=== PATIENT | female | born 1980 | race Caucasian/White ===

== ENCOUNTER 2016-08-10 11:28 | Emergency (ER) | payer SELFPAY ==
[~2016-08-10] VITALS: Ht 162.6 cm; Wt 80.3 kg
[2016-08-10 11:32] VITALS: BP 133/91; PULSE 85; RESP 16; TEMP 98.3; O2SAT 97
[2016-08-10] MEDS ORDERED: CLINDAMYCIN PHOS 900 MG/6 ML VIAL IM ONE (12:15)
[2016-08-10] MEDS ORDERED: CLIN1CAP5 PO (12:35)
[2016-08-10] MEDS ORDERED: TRAM50TA PO (12:35)
[2016-08-10] MEDS ORDERED: FLOR250C PO (12:35)
[2016-08-10] MEDS ORDERED: IBUP800T23 PO (12:35)
--- NOTE | 2016-08-10 12:36 | PD ---
HPI Chief Complaint: Oral / Dental Pain or Problem Time Seen by Provider: 11:50 Travel History International Travel<30 days: No Contact w/Intl Traveler<30days: No Traveled to known affect area: No History of Present Illness HPI Patient's 36-year-old female presenting to emergency for evaluation of dental pain. Patient states her right upper tooth is broken and has been causing pain since last night getting progressively worse since that time. She states that her cheek feels swollen and she is experiencing a dull headache. Patient states the tooth is broken for some time. She denies any fevers, chills, nausea , vomiting, difficulty breathing. PFSH Past Medical History Asthma: Yes Diminished Hearing: No Tetanus Vaccination: < 5 Years Influenza Vaccination: Yes ?: Not Social History Alcohol Use: No Tobacco Use: Yes (1 PPD) Substance Use: No Allergies-Medications (Allergen,Severity, Reaction): Coded Allergies: No Known Allergies (Unverified , 08/10/16) Review of Systems Except as stated in HPI: all other systems reviewed are Neg HENT: Positive: Headaches, Dental Difficulties Physical Exam Narrative GENERAL: Well-nourished, well-developed patient. SKIN: Focused skin assessment warm/dry. HEAD: Normocephalic. MOUTH: Mucous membranes moist, no lesions, tongue and gums appear normal. Right upper molar is chipped and broken, there is an area of fluctuance adjacent to that in the roof of her mouth, no significant erythema, no exudates noted. Mildly tender to palpation. EYES: No scleral icterus. No injection or drainage. NECK: Supple, trachea midline. No JVD or lymphadenopathy. CARDIOVASCULAR: Regular rate and rhythm without murmurs, gallops, or rubs. RESPIRATORY: Breath sounds equal bilaterally. No accessory muscle use. GASTROINTESTINAL: Abdomen soft, non-tender, nondistended. MUSCULOSKELETAL: No cyanosis, or edema. BACK: Nontender without obvious deformity. No CVA tenderness. Data Data Last Documented VS Vital Signs Date Time Temp Pulse Resp B/P Pulse Ox O2 Delivery O2 Flow Rate FiO2 08/10/16 11:32 98.3 85 16 133/91 97 Orders Clindamycin Inj (Cleocin Inj) (08/10/16 12:15) [facility] Medical Decision Making Medical Screen Exam Complete: Yes Emergency Medical Condition: Yes Interpretation(s) Vital Signs Date Time Temp Pulse Resp B/P Pulse Ox O2 Delivery O2 Flow Rate FiO2 08/10/16 11:32 98.3 85 16 133/91 97 Differential Diagnosis Abscess versus caries versus cellulitis versus other Narrative Course Patient is a 36-year-old female presenting to emergency for evaluation of one day of dental pain. Discussed with my attending physician also evaluated patient. Paged on-call maxillofacial surgeon Dr. Steele who recommended patient be placed on antibiotics and follow up with a dentist as outpatient. Patient will be given clindamycin IM in the emergency department. She'll be provided with a prescription to complete full course at home. She is advised to follow-up with a dentist to have tooth extracted or to have a root canal performed. She was encouraged return to emergency department for any new or worsening symptoms. She verbalized understanding of instructions. Patient is stable for discharge. Diagnosis Primary Impression: Dental abscess Referrals: Dentist 1 week Patient Instructions: Dental Abscess (ED), General Instructions Additional Instructions: Follow-up with a dentist for further evaluation and treatment Complete full course of antibiotics as prescribed Do not drive or operate machinery while taking narcotic pain medication Return to emergency department for any new or worsening symptoms Med/Other Pt SpecificInfo: Prescription(s) given Scripts Tramadol 50 Mg Tab50 Mg PO Q6H PRN (PAIN) #10 TAB Ref 0 Prov:Lali Conn MD 08/10/16 Ibuprofen 800 Mg [id number] Mg PO Q6HR PRN (PAIN) #40 TAB Ref 0 Prov:Leticia Carias 08/10/16 Saccharomyces Boulardii (Florastor)250 Mg [id number] Mg PO BID 10 Days Ref 0 Prov:Leticia Carias 08/10/16 Clindamycin 150 Mg [id number] Mg PO Q8HR 10 Days Ref 0 Prov:Leticia Carias 08/10/16 Disposition: 01 DISCHARGE HOME Condition: Stable Leticia Carias Aug 10, 2016 12:36
== END 2016-08-10 13:18 | disposition home or self-care (01) ==
LOC: PHEFT 11:28
DX: K04.7 Periapical abscess without sinus (principal); J45.909 Unspecified asthma, uncomplicated; F17.210 Nicotine dependence, cigarettes, uncomplicated; R51 Headache
CPT/HCPCS: 96372

== ENCOUNTER 2016-11-01 09:54 | Emergency (ER) | payer SELFPAY ==
[~2016-11-01] VITALS: Ht 162.6 cm; Wt 83.6 kg
[~2016-11-01 09:54] MED LIST: CLIN1CAP5 PO; FLOR250C PO; IBUP800T23 PO; TRAM50TA PO
[2016-11-01 09:58] VITALS: BP 122/75; PULSE 85; RESP 16; TEMP 98.4; O2SAT 98
[2016-11-01] MEDS ORDERED: ORPHENADRINE INJ 60 MG/2 ML AMP IM ONE (10:15)
[2016-11-01] MEDS ORDERED: KETOROLAC TROMETHAMINE 60 MG/2 ML (IM) VIAL IM ONE (10:15)
[2016-11-01] MEDS ORDERED: IBUP-232 PO (10:17)
[2016-11-01] MEDS ORDERED: NORC5TAB PO (10:17)
[2016-11-01] MEDS ORDERED: ORPH100T99 PO (10:17)
--- NOTE | 2016-11-01 10:17 | PD ---
HPI Chief Complaint: Musculoskeletal Complaint Time Seen by Provider: 10:03 Travel History International Travel<30 days: No Contact w/Intl Traveler<30days: No Traveled to known affect area: No History of Present Illness HPI The patient is a 36-year-old female who presents emergency department for back spasms. The patient states she was driving her car yesterday when she developed back spasms which are located in the midthoracic region, radiates to the sides bilaterally, worse with certain positions such as sitting upright and certain movements such as rotating to the left or right, as well as bending over. The patient states her pain is improved when she lies on her side. She denies any radiation of the pain down the lower extremities and denies any weakness or numbness to lower extremities. She does have a previous history of herniated disc at L4-L5 and L5-S1. The patient denies any trauma to the thoracic region, however, does note the pain is also worse with coughing, occasionally feels like she has difficulty taking a deep breath secondary to the back spasms. She does have a history of a chronic dry nonproductive cough with a history of tobacco use. She denies any fever, chills, or sweats. Symptoms are mild to moderate, worse with certain movements, and alleviated with laying on her left side. PFSH Past Medical History Asthma: Yes Diminished Hearing: No Kidney Stones: Yes Medical other: Yes (HERNIATED DISCS, OSTEOMYELITIS) ?: Not LMP: 10/18/16 Past Surgical History Section: Yes Social History Alcohol Use: No Tobacco Use: Yes (1 PPD) Substance Use: No Allergies-Medications (Allergen,Severity, Reaction): Coded Allergies: No Known Allergies (Unverified , 11/01/16) Reported Meds & Prescriptions Reported Meds & Active Scripts Active No Active Prescriptions or Reported Medications Review of Systems Except as stated in HPI: all other systems reviewed are Neg General / Constitutional: No: Fever Cardiovascular: No: Chest Pain or Discomfort Respiratory: No: Shortness of Breath Gastrointestinal: No: Nausea, Vomiting Genitourinary: No: Dysuria, Incontinence Musculoskeletal: Positive: Pain Neurologic: No: Paresthesia, Sensory Disturbance Physical Exam Narrative GENERAL: Awake, alert, pleasant 36-year-old female who appears her stated age and is in no acute respiratory distress. SKIN: Focused skin assessment warm/dry. HEAD: Atraumatic. Normocephalic. EYES: Pupils equal and round. No scleral icterus. No injection or drainage. NECK: Trachea midline. No JVD. CARDIOVASCULAR: Regular rate and rhythm. No murmur appreciated. RESPIRATORY: No accessory muscle use. Clear to auscultation. Breath sounds equal bilaterally. Back: No tenderness of the mid thoracic or lumbar vertebrae. Mild tenderness of the paravertebral muscles, pain is elicited with rotation of thorax and with flexion of the thorax. No erythema or rash noted. MUSCULOSKELETAL: No obvious deformities. No clubbing. No cyanosis. No edema. NEUROLOGICAL: Awake and alert. No obvious cranial nerve deficits. Motor grossly within normal limits. Normal speech. PSYCHIATRIC: Appropriate mood and affect; insight and judgment normal. Data Data Last Documented VS Vital Signs Date Time Temp Pulse Resp B/P Pulse Ox O2 Delivery O2 Flow Rate FiO2 11/01/16 09:58 98.4 85 16 122/75 98 Orders Ketorolac Inj (Toradol Inj) (11/01/16 10:15) Orphenadrine Inj (Norflex Inj) (11/01/16 10:15) MDM Medical Decision Making Medical Screen Exam Complete: Yes Emergency Medical Condition: Yes Medical Record Reviewed: Yes Differential Diagnosis Differential diagnosis includes back spasm, arthralgia, shingles, radiculopathy , herniated disc, neuralgia. 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 Vitals are unremarkable and the patient is afebrile. The patient was administered Toradol and Norflex IM, will be discharged home on ibuprofen, Norflex, and [place] as needed for pain. She is advised to follow-up with her primary physician and return if symptoms worsen or progress. Diagnosis Primary Impression: Back spasm Patient Instructions: General Instructions Additional Instructions: Medications as directed. Follow-up with your primary physician. Return if symptoms worsen or progress. Med/Other Pt SpecificInfo: Prescription(s) given Scripts Orphenadrine ER 12 HR (Orphenadrine CR)100 Mg [id number] Mg PO Q12HR #20 TAB Ref 0 Prov:Valerio Taylor MD 11/01/16 Hydrocodone-Acetaminophen ([place])5-325 mg Tab1 Tab PO Q6H PRN (PAIN) #12 TAB Ref 0 Prov:Valerio Taylor MD 11/01/16 Ibuprofen 600 Mg [id number] Mg PO Q6H PRN (Pain/Inflammation) #20 TAB Ref 0 Prov:Valerio Taylor MD 11/01/16 Disposition: 01 DISCHARGE HOME Condition: Stable Valerio Taylor MD Nov 01, 2016 10:17
== END 2016-11-01 10:23 | disposition home or self-care (01) ==
LOC: PHEFT 09:54
DX: M62.830 Muscle spasm of back (principal); R05 Cough; F17.200 Nicotine dependence, unspecified, uncomplicated; Z87.09 Personal history of other diseases of the respiratory system; Z87.442 Personal history of urinary calculi; Z87.39 Personal history of other diseases of the musculoskeletal system and connective tissue
CPT/HCPCS: 96372; 99284; J1885; J2360

== ENCOUNTER 2016-12-29 20:27 | Emergency (ER) | payer SELFPAY ==
[~2016-12-29 20:27] MED LIST changes: -CLIN1CAP5 PO; -FLOR250C PO; +IBUP-232 PO; -IBUP800T23 PO; +NORC5TAB PO; +ORPH100T99 PO; -TRAM50TA PO
[2016-12-29 20:30] VITALS: BP 129/85; PULSE 88; RESP 18; TEMP 98.2; O2SAT 99
--- NOTE | 2016-12-29 20:37 | PD ---
HPI Chief Complaint: Oral / Dental Pain or Problem Time Seen by Provider: 20:36 Travel History International Travel<30 days: No Contact w/Intl Traveler<30days: No Traveled to known affect area: No History of Present Illness HPI 36 YO F presents to the ED for evaluation of 24 hour history of right upper dental pain, radiating to the entire face. Patient endorses a broken tooth in the area and history of dental abscess. She endorses fevers and chills overnight. She's taken 800 mg ibuprofen, last dose approximately one half hours ago with no improvement of symptoms. She denies nausea, vomiting. PFSH Past Medical History Asthma: Yes Diminished Hearing: No Kidney Stones: Yes Past Surgical History Section: Yes Social History Alcohol Use: No Tobacco Use: Yes (1 PPD) Substance Use: No Allergies-Medications (Allergen,Severity, Reaction): Coded Allergies: No Known Allergies (Unverified , 12/29/16) Reported Meds & Prescriptions Reported Meds & Active Scripts Active Tramadol (Tramadol HCl) 50 Mg Tab 100 Mg PO Q6H PRN Augmentin (Amoxicillin-Clavulanate) 875-125 Mg Tab 1 Tab PO BID 7 Days Review of Systems Except as stated in HPI: all other systems reviewed are Neg Physical Exam Narrative GENERAL: Well-nourished, well-developed nontoxic appearing white female in no acute distress. SKIN: Warm and dry. HEAD: Normocephalic. Atraumatic. EYES: No scleral icterus. No injection or drainage. PERRLA. EOMI. ENT: Pearly cisneros tympanic membranes bilaterally. Nasal mucosa is moist. Oropharynx without erythema, edema or exudate. Uvula midline. Airway patent. DENTAL: No loose teeth. No malocclusion. There is a dental caries to the gumline of tooth #3. There is a 1.5 cm area of fluctuance near the gumline of this tooth which extends into the roof of the mouth. NECK: Supple, trachea midline. No JVD or lymphadenopathy. CARDIOVASCULAR: Regular rate and rhythm without murmurs, gallops, or rubs. RESPIRATORY: Breath sounds clear and equal bilaterally. No accessory muscle use. GASTROINTESTINAL: Abdomen soft, non-tender, nondistended. + Bowel sounds MUSCULOSKELETAL: No cyanosis, or edema. Full, active range of motion. Strength 5/5. Neurovascularly intact. BACK: Nontender without obvious deformity. No CVA tenderness. Data Data Last Documented VS Vital Signs Date Time Temp Pulse Resp B/P (MAP) Pulse Ox O2 Delivery O2 Flow Rate FiO2 12/29/16 20:30 98.2 88 18 129/85 (100) 99 Orders Orders Acetamin-Hydrocod 325-7.5 Mg ([place] 7.5 (12/29/16 20:45) Amoxicil-Clavulanate (Augmentin) (12/29/16 20:45) MDM Medical Decision Making Medical Screen Exam Complete: Yes Emergency Medical Condition: Yes Differential Diagnosis Dental caries versus dental abscess versus deep neck space infection versus other Narrative Course 36 YO F presents to the ED for evaluation of 24 hour history of right upper dental pain, radiating to the entire face. Patient endorses a broken tooth in the area and history of dental abscess. She endorses fevers and chills overnight. She's taken 800 mg ibuprofen, last dose approximately one half hours ago with no improvement of symptoms. She denies nausea, vomiting. Vitals reviewed. Physical exam consistent with dental abscess around tooth #3. Abscess I&D was performed. Please see my procedure note for details. Patient is prescribed Augmentin 875 mg twice a day 7 days, first dose administered in the ED. She is also prescribed short course of tramadol. She is provided a list of dental resources and instructed to follow-up with the dentist. We discussed reasons to return to the ED. Patient indicated understanding of the instructions and is stable, discharged home. Procedures Procedure Narrative INCISION AND DRAINAGE OF ABSCESS: A number [-] scalpel was used to make a [-] - cm incision across the area of the abscess. The abscess was drained, complex loculations were broken down, and irrigated with normal saline. Patient tolerated the procedure well. Diagnosis Primary Impression: Dental abscess Referrals: Dentist Patient Instructions: Dental Abscess (ED), General Instructions Additional Instructions: Take all antibiotics as prescribed, even if the symptoms resolve. Do not drive while taking narcotic pain medications. Follow-up with the dentist. Return to the ED for any urgent or emergent medical condition. Med/Other Pt SpecificInfo: Prescription(s) given Scripts Tramadol (Tramadol) 50 Mg Tab 100 MG PO Q6H Y for PAIN, #15 TAB 0 Refills Prov: Naveen Hobbs MD 12/29/16 Amoxicillin-Clavulanate (Augmentin) 875-125 Mg Tab 1 TAB PO BID for Infection for 7 Days, TAB 0 Refills Prov: Naveen Hobbs MD 12/29/16 Disposition: 01 DISCHARGE HOME Condition: Stable Roseanna Brito Dec 29, 2016 20:37
[2016-12-29] MEDS ORDERED: AMOXICILLIN/CLAVULANATE K 875 MG TAB PO ONE (20:45)
[2016-12-29] MEDS ORDERED: ACETAMINOPHEN/HYDROcodone 325 MG/7.5 MG TAB PO ONE (20:45)
[2016-12-29] MEDS ORDERED: TRAM50TA PO (20:46)
[2016-12-29] MEDS ORDERED: AUGM875T3 PO (20:46)
== END 2016-12-29 21:15 | disposition home or self-care (01) ==
LOC: PHEFT 20:27
DX: K04.7 Periapical abscess without sinus (principal); F17.210 Nicotine dependence, cigarettes, uncomplicated
CPT/HCPCS: 10060; 99284

== ENCOUNTER 2017-04-16 07:45 | Emergency (ER) | payer MEDICAID ==
[~2017-04-16] VITALS: Ht 162.6 cm; Wt 82.0 kg
[~2017-04-16 07:45] MED LIST changes: +AUGM875T3 PO; -IBUP-232 PO; -NORC5TAB PO; -ORPH100T99 PO; +TRAM50TA PO
[2017-04-16 07:54] VITALS: BP 135/79; PULSE 95; RESP 16; TEMP 98.1; O2SAT 16; O2SAT 99
[2017-04-16] MEDS ORDERED: ACETAMINOPHEN/HYDROcodone 325 MG/5 MG TAB PO ONE ×2 (08:15→10:00)
--- NOTE | 2017-04-16 08:16 | PD ---
HPI Chief Complaint: Related Problem Time Seen by Provider: 08:05 Travel History International Travel<30 days: No Contact w/Intl Traveler<30days: No Traveled to known affect area: No History of Present Illness HPI Patient presents with lower abdominal pain and vaginal bleeding. Thinks that she is approximately 12 weeks gravid. First day of last menses January 24 which places her at 11 weeks. . States she's been spotting intermittently for a week. Starting with cramps that awoke her from sleep and increased bleeding this morning. States she was planning on aborting this as well. No OB care. No vitamins. States she has not received Rhogam shots on any of her previous abortions. Previous IV drug user. 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 ) Allergies-Medications (Allergen,Severity, Reaction): Coded Allergies: No Known Allergies (Unverified Adverse Reaction, Unknown, 04/16/17) Reported Meds & Prescriptions Reported Meds & Active Scripts Active No Active Prescriptions or Reported Medications Review of Systems General / Constitutional: No: Fever Eyes: No: Visual changes HENT: No: Headaches Cardiovascular: No: Chest Pain or Discomfort Respiratory: No: Shortness of Breath Gastrointestinal: Positive: Abdominal Pain Genitourinary: Positive: Vaginal Bleeding, No: Dysuria Musculoskeletal: No: Pain Skin: No Rash Neurologic: No: Weakness Psychiatric: No: Depression Endocrine: No: Polydipsia Hematologic/Lymphatic: No: Easy Bruising Physical Exam Narrative GENERAL: Well-nourished, well-developed patient. SKIN: Focused skin assessment warm/dry. HEAD: Normocephalic. EYES: No scleral icterus. No injection or drainage. NECK: Supple, trachea midline. No JVD or lymphadenopathy. CARDIOVASCULAR: Regular rate and rhythm without murmurs, gallops, or rubs. RESPIRATORY: Breath sounds equal bilaterally. No accessory muscle use. GASTROINTESTINAL: Abdomen soft, non-tender, nondistended. MUSCULOSKELETAL: No cyanosis, or edema. BACK: Nontender without obvious deformity. No CVA tenderness. Vaginal exam, vaginal mucosa pink moist and healthy in appearance. Cervix visualized and appears normal with a small amount of bleeding from the os Data Data Last Documented VS Vital Signs Date Time Temp Pulse Resp B/P (MAP) Pulse Ox O2 Delivery O2 Flow Rate FiO2 04/16/17 09:15 16 04/16/17 08:03 90 04/16/17 07:54 98.1 135/79 (97) 99 Orders Orders Beta Hcg (Quant/Titer) (04/16/17 08:05) Complete Blood Count With Diff (04/16/17 08:05) Urinalysis - C+S If Indicated (04/16/17 08:05) Acetamin-Hydrocod 325-5 Mg ([place] 5-325 (04/16/17 08:15) Urine Culture (04/16/17 08:40) Acetamin-Hydrocod 325-5 Mg ([place] 5-325 (04/16/17 10:00) Labs Laboratory Tests Test 04/16/17 08:40 04/16/17 09:20 Urine Collection Type CLEAN CATCH Urine Color RED Urine Turbidity MARKED Urine pH 6.0 Urine Specific [place] 1.022 Urine Protein 100 mg/dL Urine Glucose (UA) NEG mg/dL Urine Ketones NEG mg/dL Urine Occult Blood LARGE Urine Nitrite NEG Urine Bilirubin NEG Urine Leukocyte Esterase NEG Urine RBC INNUM /hpf Urine WBC 25-49 /hpf Urine Squamous Epithelial Cells 0-5 /hpf Microscopic Urinalysis Comment CULTURE INDICATED Urine Collection Time 08:40 White Blood Count 7.2 TH/MM3 Red Blood Count 4.55 MIL/MM3 Hemoglobin 13.0 GM/DL Hematocrit 39.7 % Mean Corpuscular Volume 87.2 FL Mean Corpuscular Hemoglobin 28.6 PG Mean Corpuscular Hemoglobin Concent 32.8 % Red Cell Distribution Width 14.5 % Platelet Count 177 TH/MM3 Mean Platelet Volume 9.0 FL Neutrophils (%) (Auto) 70.7 % Lymphocytes (%) (Auto) 21.4 % Monocytes (%) (Auto) 5.8 % Eosinophils (%) (Auto) 1.0 % Basophils (%) (Auto) 1.1 % Neutrophils # (Auto) 5.1 TH/MM3 Lymphocytes # (Auto) 1.5 TH/MM3 Monocytes # (Auto) 0.4 TH/MM3 Eosinophils # (Auto) 0.1 TH/MM3 Basophils # (Auto) 0.1 TH/MM3 CBC Comment DIFF FINAL Differential Comment Human Chorionic Gonadotropin, Quant [id number] MIU/ML MDM Medical Decision Making Medical Screen Exam Complete: Yes Emergency Medical Condition: Yes Differential Diagnosis Miscarriage, threatened , dysmenorrhea Narrative Course Assessment and plan discussed with patient at bedside. Possible product of conception visualized after patient use the restroom. Diagnosis Primary Impression: Miscarriage Patient Instructions: General Instructions, Narcotic given in the ED Additional Instructions: Encouraged to follow-up with the health department for repeat beta hCG Quant. Return to emergency room with any onset of new symptoms. Encouraged to follow- up with a [employer] physician. Encouraged condom use. Encouraged a daily multivitamin. Med/Other Pt SpecificInfo: Prescription(s) given Scripts Hydrocodone-Acetaminophen (Hydrocodone-Acetaminophen) 10-325 mg Tab 1 TAB PO Q4H Y for PAIN, #20 TAB 0 Refills Prov: Pritesh Shah MD 04/16/17 Disposition: 01 DISCHARGE HOME Condition: Good Pritesh Shah MD Apr 16, 2017 08:16
[2017-04-16 08:52] LABS: BILIRUBIN, URINE NEG (NEG); BLOOD, URINE LARGE (NEG); GLUCOSE,URINE NEG (NEG); KETONE, URINE NEG (NEG); NITRITE,URINE NEG (NEG); URINE COLOR RED (YELLW/STRAW); URINE LEUKOCYTE ESTERASE NEG (NEG)
[2017-04-16 08:53] LABS: RBC, URINE INNUM /hpf (0-3); SQUAMOUS EPITHELIAL CELL URINE 0-5 /hpf (0-5)
[2017-04-16 09:22] LABS: AUTOMATED NEUTROPHIL # 5.1 TH/MM3 (1.8-7.7); BASOPHIL # 0.1 TH/MM3 (0-0.2); BASOPHIL % 1.1 % (0.0-2.0); EOSINOPHIL # 0.1 TH/MM3 (0-0.4); HEMATOCRIT 39.7 % (35.0-46.0); LYMPH % 21.4 % (9.0-44.0); LYMPHOCYTE # 1.5 TH/MM3 (1.0-4.8); MEAN CELL VOLUME 87.2 FL (80.0-100.0); MEAN CORPUSCULAR HEMOGLOBIN 28.6 PG (27.0-34.0); MEAN CORPUSCULAR HGB CONC 32.8 % (32.0-36.0); MONO % 5.8 % (0.0-8.0); MONOCYTE # 0.4 TH/MM3 (0-0.9); NEUT % 70.7 % (16.0-70.0); PLATELET COUNT 177 TH/MM3 (150-450); RED BLOOD COUNT 4.55 MIL/MM3 (4.00-5.30); RED CELL DISTRIBUTION WIDTH 14.5 % (11.6-17.2); WHITE BLOOD COUNT 7.2 TH/MM3 (4.0-11.0)
[2017-04-16] MEDS ORDERED: HYDR-3583 PO (10:29)
[2017-04-16 11:15] VITALS: RESP 16
[2017-04-16] MEDS ORDERED: CIPR-9 PO (11:19)
[2017-04-16 11:20] VITALS: BP 128/72
== END 2017-04-16 11:30 | disposition home or self-care (01) ==
LOC: PHED 07:45
DX: O03.9 Complete or unspecified spontaneous abortion without complication (principal); J45.909 Unspecified asthma, uncomplicated; F41.9 Anxiety disorder, unspecified; O99.331 Smoking (tobacco) complicating pregnancy, first trimester; Z87.442 Personal history of urinary calculi; Z3A.12 12 weeks gestation of pregnancy
CPT/HCPCS: 81001; 84702; 85025; 87086; 99284